=== PATIENT | male | born 1975 | race Asian ===

== ENCOUNTER 2019-06-18 19:29 | Emergency (ER) | payer BC, OTHER ==
--- NOTE | 2019-06-18 19:37 | ED ---
Neck Pain - HPI Summary HPI Summary: 44 yo male presents via EMS with neck injury. Pt tells me that he was playing hockey this evening and was hit in the left shoulder/back. Fell and felt numbness and tingling in his b/l arms and legs with inability to move these for about 5 seconds. He denies LOC. Tried to get to his feet, but was told to lay still and EMS was called and he was placed in a neck brace and backboard and transported here. Currently pt complains of mild posterior neck pain. He denies headache, dizziness, vision changes, numbness, tingling, difficulty breathing, chest pain, SOB, n/v. No hx of neck injury or problems that he is aware of. He has a hx of HTN, but has not been placed on medication for this. - History of Current Complaint Stated Complaint: NECK PAIN PER EMS Time Seen by Provider: 06/18/19 19:36 Hx Obtained From: Patient Onset/Duration: Sudden Onset Severity Initially: Moderate Severity Currently: Mild Pain Intensity: 2 Pain Scale Used: 0-10 Numeric - Allergies/Home Medications Allergies/Adverse Reactions: Allergies Allergy/AdvReac Type Severity Reaction Status Date / Time No Known Allergies Allergy Verified 09/02/18 10:44 PMH/Surg Hx/FS Hx/Imm Hx Endocrine/Hematology History: Denies: Hx Diabetes Cardiovascular History: Reports: Hx Hypertension Denies: Hx Cardiac Arrest, Hx Hypotension Neurological History: Denies: Hx CVA, Hx Headaches, Hx Migraine - Surgical History Surgical History: None - Immunization History Immunizations Up to Date: Yes - Family History Known Family History: Positive: Hypertension - Social History Occupation: Employed Full-time Lives: With Family Alcohol Use: Occasionally Substance Use Type: Reports: None Smoking Status (MU): Never Smoked Tobacco Review of Systems Constitutional: Negative Eyes: Negative ENT: Negative Cardiovascular: Negative Respiratory: Negative Gastrointestinal: Negative Genitourinary: Negative Musculoskeletal: Other - Neck pain Skin: Negative Positive: Numbness - resolved Psychological: Normal All Other Systems Reviewed And Are Negative: No Physical Exam - Summary Physical Exam Summary: Prior to CT exam: GENERAL: NAD. WDWN. No pain distress. SKIN: No rashes, sores, ulcers, masses, lesions. HEENT: Head: AT/NC. No raccoon eyes or battles sign. Eyes: PERRLA. EOM intact. Conjunctiva clear without inflammation or discharge. Ears: Hearing grossly normal. TMs intact, no bulging, erythema, or edema. No hemotympanum Nose: Nasal mucosa pink and moist. NTTP maxillary and frontal sinus. Throat: Posterior oropharynx without exudates, erythema, or tonsillar enlargement. Uvula midline. CHEST: CTAB. No r/r/w. No accessory muscle use. Breathing comfortably and in no distress. CV: RRR. Pulses intact. Brisk cap refill. ABDOMEN: Soft. NTTP. Bowel sounds present MSK: FROM in B/L UEs and LEs with symmetric strength. NEURO: A&Ox3. 3 word recall, remote, recent memory, ability to follow 2-step directions, and attention intact. CN: II: Peripheral dai intact. Vision normal. III, IV, : EOMI. No nystagmus. PERRLA. V: Sensations intact and symmetric. Opens mouth and clenches teeth. VII: No facial asymmetry. Forehead wrinkles. Grins, shuts eyes, frowns, puffs cheeks. VIII: Hearing intact to finger rub. IX, X: Swallows and coughs. Uvula midline. XI: Shrugs shoulders. XII: No tongue deviation Finger -to-nose are intact. Normal speech. No facial drooping. Reflexes intact throughout. PSYCH: Age appropriate behavior. Post CT exam and clearance of c-spine injury: NECK: FROM without pain. No TTP. No vertebral tenderness. Triage Information Reviewed: Yes Vital Signs On Initial Exam: Vital Signs: Temp Pulse Resp BP Pulse Ox 97.4 F 94 18 166/111 96 06/18/19 21:19 06/18/19 21:19 06/18/19 21:19 06/18/19 21:19 06/18/19 21:19 Vital Signs Reviewed: Yes Procedures - Sedation Patient Received Moderate/Deep Sedation with Procedure: No Diagnostics - Laboratory Lab Statement: Any lab studies that have been ordered have been reviewed, and results considered in the medical decision making process. - CT Cervical CT Interpretation Completed By: Radiologist Summary of CT Findings: IMPRESSION: 1. no acute fracture 2. Extradural ovoid soft tissue abnormality noted adjacent to the right lateral aspect of C1, C2 with bony remodeling. This measures approximately 3.[address] in maximum diameter[address] 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 For further evaluation, contrast-enhanced MRI is recommended, this can be performed on a non-urgent basis. 3. Cervical spondylosis, disc disease most prominent at C5-6, C6-7. brain CT Interpretation Completed By: Radiologist Summary of CT Findings: IMPRESSION: No acute intracranial findings. Neck Course/Dx - Course Course Of Treatment: Prior to removing C collar, I spoke to [facility] Dr. Elizondo about CT cervical findings as above. He states that this does not seem acute and it is safe to remove collar. Recommends no contact sports until neurosurg f/u and likely MRI. C collar removed and discussed this with pt - FROM without pain. Will refer him to neurosurgery and have him take tylenol/ibuprofen for discomfort. Neuro exam WNL. Advised to f/u with his PCP for elevated BP today. - Diagnoses Provider Diagnoses: Nerve sheath tumor, Neck pain - Physician Notifications Discussed Care Of Patient With: Dr. Elizondo - Discussed with Dr. Elizondo of [facility] neurosurgery regarding CT findings. He recommends no contact sports until further eval by neurosurg with likely MRI. Discharge ED - Sign-Out/Discharge Documenting (check all that apply): Patient Departure - Discharge Plan Condition: Stable Disposition: HOME Patient Education Materials: Neck Pain (ED) Referrals: France Caro MD [Primary Care Provider] - Teddy Joyce MD [Medical Doctor] - As Soon As Possible Additional Instructions: If you develop a fever, shortness of breath, chest pain, new or worsening symptoms - please call your PCP or go to the ED immediately. Your blood pressure was high at todays visit. Please see your primary provider within 4 weeks for recheck and re-evaluation. Your neck images did not show any fractures or acute process, but did show a growth on the nerve near the base of your skull/upper neck. I spoke with a Neurosurgeon and they recommend that you do not participate in contact sports until you are able to get further evaluation and likely MRI of the area. Please call the neurosurgeon at the number below to schedule an appointment for further evaluation within 1-2 weeks - Billing Disposition and Condition Condition: STABLE Disposition: Home - Attestation Statements Provider Attestation: 44 y/o male with neck pain after trauma. In c collar, CT showed nerve sheath tumor. Patient now asymptomatic, NSGY consulted and agrees w outpatient f/u. Maria Alejandra Dumont MD
[2019-06-18 21:20] VITALS: BP 166/111
== END 2019-06-18 21:19 | disposition home or self-care (01) ==
LOC: ED 19:29
DX: D36.10 Benign neoplasm of peripheral nerves and autonomic nervous system, unspecified (principal); M54.2 Cervicalgia; I10 Essential (primary) hypertension; M47.892 Other spondylosis, cervical region; W50.0XXA Accidental hit or strike by another person, initial encounter; Y93.69 Activity, other involving other sports and athletics played as a team or group
CPT/HCPCS: 70450; 72125; 99282